=== PATIENT | male | born 1990 | race Caucasian/White ===

== ENCOUNTER 2025-03-08 07:23 | Outpatient (CLI) | payer BC, SELFPAY ==
[2025-03-08 11:13] LABS: Hemoglobin A1C 5.6 % (<5.7)
[2025-03-08 11:51] LABS: Calculated LDL 182 mg/dL (<100); Cholesterol 303 mg/dL (<200); HDL Cholesterol 60 mg/dL (>or=40); Triglyceride 306 mg/dL (<150)
== END 2025-03-08 07:24 | disposition home or self-care (01) ==
LOC: LBO 03-09 07:23
PROVIDERS: PCP Nurse Practitioner Family; Visit Provider Nurse Practitioner Family
DX: Z13.220 Encounter for screening for lipoid disorders (principal); Z13.1 Encounter for screening for diabetes mellitus
CPT/HCPCS: 36415; 80061; 83036